=== PATIENT | female | born 1965 | race Caucasian/White ===

== ENCOUNTER 2020-11-30 10:04 | Outpatient (CLI) | payer MEDICARE, MEDICAID, SELFPAY | END 2020-11-30 10:05 | disposition home or self-care (01) | LOC: ANHCOVIDVC 10:06 | PROVIDERS: PCP Internal Medicine | DX: Z23 Encounter for immunization (principal) | CPT/HCPCS: 0001A; 91300 ==

== ENCOUNTER 2020-12-21 10:01 | Outpatient (CLI) | payer MEDICARE, MEDICAID, SELFPAY | END 2020-12-21 10:02 | disposition home or self-care (01) | LOC: ANHCOVIDVC 10:01 | PROVIDERS: PCP Internal Medicine | DX: Z23 Encounter for immunization (principal) | CPT/HCPCS: 0002A; 91300 ==

== ENCOUNTER 2022-07-23 10:47 | Outpatient (CLI) | payer MEDICARE, MEDICAID, SELFPAY ==
--- NOTE | 2022-07-23 11:02 | ECG_ITS ---
Measurements Intervals [place] Rate: 68 P: 34 WV: 176 QRS: -24 QRSD: 89 T: 29 QT: 388 QTc: 413 Interpretive Statements SINUS RHYTHM BASELINE ARTIFACT- I, II, III, AVR, AVL, AVF NORMAL ECG NO PREVIOUS ECG AVAILABLE FOR COMPARISON Electronically Signed On 07-23-2022 11:55:47 [employer]ES [employer]INE[employer] by Jay Peña D.O.
== END 2022-07-23 10:48 | disposition home or self-care (01) ==
LOC: ANHSURGERY 10:52
PROVIDERS: PCP Internal Medicine; Visit Provider Surgery
DX: Z72.0 Tobacco use (principal); K43.2 Incisional hernia without obstruction or gangrene
CPT/HCPCS: 36415; 86850; 86900; 86901; 93005

== ENCOUNTER 2022-07-28 00:14 | Day surgery (SDC) | payer MEDICARE, MEDICAID, SELFPAY ==
[2022-07-22 11:48] VITALS: BMI 37.5
--- NOTE | 2022-07-22 11:55 | PC.NURSE ---
Report to the Outpatient Waiting Room, entrance under the green pavilion located off [facility], at time 12:00 on date 07/28/22. Planned Procedure Time: 2:00. Time changes happen often and if your time is changed the preop area will call you the afternoon before. - You and your visitor will be asked to self-screen and do not enter if you have any COVID symptoms. - We encourage only one visitor and NO visitors under age 16 are allowed at this time. Your visitor will receive communication by the phone number that is given day of service. - The patient visitor is requested to social distance or may leave the building when not with patient due to restrictions. - A mask is OPTIONAL within the hospital. Patients may have clear liquids (water, carbonated beverages, clear teas, apple juice) until 3 hours prior to surgery (11:00) with a maximum of 20 ounces. - No food from midnight until time of surgery Take the following medications with a SIP of water the morning of surgery: NONE Medications to discontinue per physician: N/A Date to take last dose: N/A Please no make-up, nail khmer, hairspray, perfume, deodorant, or body powder the day of surgery. No jewelry (including any body piercings) or valuables the day of surgery, leave them at home. Please take a shower or bath the night before, or the morning of, surgery with an antibacterial soap (HIBICLENS). Wear comfortable, loose fitting clothing. - Jewelry must be removed prior to entering the operating room. Rings and piercings that are not removed may be cut off. - The hospital will not accept responsibility for valuables. - Please leave all valuables, including medications, at home the day of surgery. If you are going home after surgery, a licensed ross carrier driver must drive you home. - NO public transportation without another adult. - We recommend that an adult stay with you for 24 hours following discharge. - We also recommend that you do not drive, make important decision, drink alcoholic beverages, or take any drugs that were not prescribed by your health care provider for at least 24 hours after your discharge time. Follow any additional instructions given to you from your surgeon. If you or anyone in your household have experienced Covid symptoms in the past week, please notify your surgeon or the nurse liaison at the phone number below for possible testing. Telephone instructions given to DANN BAIN and asked if any additional questions and then verbalized understanding. Patient advised to call surgeon office or pre surgery nurse liaison [phone] if any additional questions.
[2022-07-28] VITALS (9 sets, daily range): BP systolic 104–126; BP diastolic 59–71; PULSE 58–85; RESP 12–18; TEMP 36.4–36.6; O2SAT 91–100
--- NOTE | 2022-07-28 10:28 | WPDANESEPPF ---
Anes - Initial Pre Proc Eval Procedure: Operation Date: 07/28/22 14:00 Proposed Procedures p Robotic Assisted Incisional Hernia Repair with Mesh - Laura Peña MD Date/Time: 07/28/22 10:28 Surgeon: Laura Peña MD Pre Op Diagnosis: incisional hernia Patient Data Age: 57 Gender: F Height: 1.57 m Weight: 93 kg Allergies Allergy/AdvReac Type Severity Reaction Status Date / Time No Known Allergies Allergy Verified 07/28/22 13:08 Home Medications Medication Instructions Recorded Confirmed Type phentermine 37.5 mg tablet 18.75 mg PO DAILY 06/03/22 07/28/22 History omeprazole 20 mg capsule,delayed 20 mg PO DAILY 07/22/22 07/28/22 History release Patient hx anesthesia problems: none Family hx anesthesia problems: none Results Review: All pre-operative results and documents have been reviewed as part of the pre-operative evaluation. [facility] Past Medical History Medical History (Updated 07/28/22 @ 10:31 by Aldair Pollard DO) Acid reflux Arthritis of left knee Generalized abdominal fullness Right foot pain Tubal ectopic Surgical History Surgical History (Updated 07/28/22 @ 13:53 by Aldair Pollard DO) H/O right knee surgery History of appendectomy History of eyelid surgery History of tubal ligation Presence of right artificial knee joint Status post right partial knee replacement (06/28/19) Family History Family History Father Family history of malignant neoplasm Hypertension Heart disease Mother Dementia Macular degeneration Diabetes mellitus Hypertension Sibling Heart disease Social History Social History (Updated 07/24/22 @ 14:45 by Carmina Hermosillo) Smoking packs per day: 1 Smoking cigarettes per day: 20.0 Years smoked: 25 Smoking pack-years: 25.00 Smoking status: Current every day smoker Tobacco type: cigarettes Alcohol intake: current Alcohol use details: 2/MONTH Substance use: never Substance use type: does not use Lack of Transportation: No Lack of Food: Never True Current Housing: I Have Housing Concerned About Future Housing: No Difficulty Paying Gas/Electric Bills: No Difficulty Paying for Meds: No Currently Unemployed: No Education: High School Diploma/GED Difficulty w/ Childcare or Family Care: No Living arrangements: alone 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 Informed Consent: The patient's anesthetic plan and its attendant risks and benefits were discussed with the patient/family/POA. Questions were solicited and answers provided to the satisfaction of the patient/family/POA.
[2022-07-28] MEDS: LACTATED RINGERS 1,000 ML 30 ML IV CONT ×2 (12:50→16:32)
[2022-07-28] MEDS: KETOROLAC 15 MG/ML VIAL (*BKC) IV PUSH (12:52)
--- NOTE | 2022-07-28 14:35 | PM.IMHP ---
H&P: HPI History of Present Illness Date/Time: 07/28/22 14:35 Chief Complaint: incisional hernia Narrative: Queta is a 57 y/o female who presents to the office at the request of Hali LARA for evaluation of an umbilical bulge. Patient states she first noticed the bulge in 2019. She states the bulge has increased in size and causes her discomfort and abdominal bloating. Pt reports she noticed after lap appy. She states pain is worse with coughing or with daily activities. Review of Systems Review of Systems: All systems reviewed & are unremarkable except as noted in HPI and below PMFSH Past Medical History Medical History Acid reflux Arthritis of left knee Generalized abdominal fullness Right foot pain Tubal ectopic Surgical History Surgical History H/O right knee surgery History of appendectomy History of eyelid surgery History of tubal ligation Presence of right artificial knee joint Status post right partial knee replacement (06/28/19) Family History Family History Father Family history of malignant neoplasm Hypertension Heart disease Mother Dementia Macular degeneration Diabetes mellitus Hypertension Sibling Heart disease Social History Social History Smoking packs per day: 1 Smoking cigarettes per day: 20.0 Years smoked: 25 Smoking pack-years: 25.00 Smoking status: Current every day smoker Tobacco type: cigarettes Alcohol intake: current Alcohol use details: 2/MONTH Substance use: never Substance use type: does not use Lack of Transportation: No Lack of Food: Never True Current Housing: I Have Housing Concerned About Future Housing: No Difficulty Paying Gas/Electric Bills: No Difficulty Paying for Meds: No Currently Unemployed: No Education: High School Diploma/GED Difficulty w/ Childcare or Family Care: No Living arrangements: alone 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 Spiritual care concerns: No Meds Home Medications and Allergies Home Medications Medication Instructions Recorded Confirmed Type phentermine 37.5 mg tablet 18.75 mg PO DAILY 06/03/22 07/28/22 History omeprazole 20 mg capsule,delayed 20 mg PO DAILY 07/22/22 07/28/22 History release Allergies Allergy/AdvReac Type Severity Reaction Status Date / Time No Known Allergies Allergy Verified 07/28/22 13:08 Vital Signs Vital Signs - 24 hr 07/28/22 12:06 Temperature 36.4 C L Pulse Rate 68 Respiratory Rate 18 Blood Pressure 126/70 Pulse Oximetry 96 Oxygen Delivery Room Air Exam Const: General: cooperative, comfortable, no acute distress and obese Resp: Auscultation: clear to auscultation bilaterally Cardio: Rate: regular rate Rhythm: regular rhythm GI: Inspection: normal to inspection, distended and incision GI Palp: Yes abdominal tenderness, Yes Soft to palpation, Yes Tenderness to palpation present (GI), No Guarding due to palpation present (GI) and No Rigid due to palpation Assessment and Plan Assessment and plan (1) Incisional hernia: Qualifiers: Obstruction and gangrene presence: without obstruction or gangrene Qualified Code(s): K43.2 - Incisional hernia without obstruction or gangrene Code(s): K43.2 - Incisional hernia without obstruction or gangrene Status: Acute Assessment and Plan: will setup for robotic assisted repair c mesh
--- NOTE | 2022-07-28 14:39 | WPDHPUPDATE1 ---
History and Physical Update Update Date/Time: 07/28/22 14:39 History and Physical has been reviewed, including an updated exam of the patient. There are NO changes in the patient's condition. Risks, benefits, and alternatives have been discussed and questions answered. Patient agrees to proceed with procedure.
[2022-07-28] MEDS: ceFAZolin 2 GM/D5W 50 ML 2 GM/50 ML BAG IVPB (14:56)
[2022-07-28] MEDS: BUPIVACAINE/EPINEPHRINE 0.25% 50 ML VIAL 30 ML INFILTRATE (15:44)
--- NOTE | 2022-07-28 16:33 | W.PM.PROC2 ---
Procedure Note - Detailed Date of Procedure 07/28/22 Pre-op Diagnosis incisional hernia Post-op Diagnosis Other ( incarcerated incisional hernia with loop of small intestine) Procedure Performed Robotic assisted repair incarcerated incisional hernia with mesh Surgeon Laura Peña MD Anesthesia General Indications 57-year-old female presenting with incisional hernia progressively worsening over last few years Findings incarcerated supraumbilical incisional hernia with loop of small intestine measuring approximately 3.5 cm Description of Procedure The patient was taken the operating room placed in the supine position. After adequate induction of general anesthesia, the patient was prepped and draped in normal sterile fashion. A time-out was then done to verify the patient's identity as well as the procedure being performed. I began by making a 5 mm incision in the left upper quadrant. Through this, a Veress needle was placed into the peritoneal cavity and CO2 gas was insufflated. After adequate pneumoperitoneum was achieved, a 5 mm trocar was placed through this incision. I then placed the laparoscope through this trocar site and under direct visualization I placed a 8 mm port in the left mid abdomen as well as an additional 8 mm port in the left lower abdomen. I then moved the camera to the lower port and replaced the 5 mm port with a 12 mm airport. The robot was then docked to the 3 port sites. I then went to the robotic console. I began by identifying the hernia. A moderate-sized incarcerated hernia was noted in the supraumbilical region. There was noted to be an incarcerated loop of small intestine. Using careful dissection both bluntly and sharply, I was able to reduce this hernia including this loop of small intestine. Once reduced, I also reduced and dissected out the hernia sac. I then closed the approximately 3.5 cm defect with 0 strata fix suture. I then placed a 4x6 [address] mesh into the abdominal cavity. The positional stitch was placed in the middle of the mesh and brought up centering the mesh over the defect. Once this was done, I used 2 0 V lock suture x 2 to circumferentially suture the mesh to the abdominal. Once the mesh was completely sutured in, I was happy with our tension-free repair. The mesh was noted to have good overlap of the defect. At this point, the robot was undocked and all ports were removed. I then closed the 12 mm port site with an 0 Vicryl [id number] suture at the fascial level. All port sites were then closed with 4 O Monocryl subcuticular suture. The patient tolerated the procedure well, is extubated in the operating room postoperative, and transferred to the recovery room in stable condition. Implants 4x6 inch oval Ventralight mesh Estimated Blood Loss 10 Drains No Packing No Pathology None sent Complications No immediate complications Condition Stable Disposition PACU [facility] Billing Surgery - Charge Forward: Surgery Billing
[2022-07-28] MEDS: fentaNYL CITRATE INJ (*CRX) 100 MCG/2 ML VIAL 25 MCG IV PUSH ×2 (17:16→17:21)
[2022-07-28] MEDS: oxyCODONE HCL (*CRX) 5 MG TAB IR PO (17:55)
== END 2022-07-28 18:53 | disposition home or self-care (01) ==
PROVIDERS: PCP Internal Medicine; Visit Provider Surgery
PROC: (CPT 49655; principal; 2022-07-28 14:00)
DX: K43.0 Incisional hernia with obstruction, without gangrene (principal); K21.9 Gastro-esophageal reflux disease without esophagitis; F17.210 Nicotine dependence, cigarettes, uncomplicated; E66.9 Obesity, unspecified; Z68.38 Body mass index [BMI] 38.0-38.9, adult
CPT/HCPCS: 49655; S2900; A9270; C1781; J0131; J0690; J1100; J1170; J1885; J2250; J2405; J2704; J2710; J3010; J7120